=== PATIENT | female | born 1950 | race African-American/Black ===

== ENCOUNTER 2017-04-03 19:38 | Emergency (ER) | payer MEDICARE, MEDICAID ==
[~2017-04-03] VITALS: Ht 170.2 cm; Wt 68.0 kg
--- NOTE | 2017-04-03 19:40 | NUR ---
BIBRA FROM HOME DT RUQ ABDOMINAL PAIN X 2 DAYS, ACHING. PT IS AAO4. APPEARS IN NO APPARENT DISTRESS. VSS
[2017-04-03] MEDS ORDERED: FAMOTIDINE/PF INJ 20 MG/2 ML VIAL IV ONE ×2 (20:30→20:41)
[2017-04-03] MEDS ORDERED: ONDANSETRON HCL/PF 4 MG/2 ML VIAL IVP ONE (20:30)
[2017-04-03] MEDS ORDERED: IV NS 0.9% 1,000 ML BAG IV ONE (20:30)
[2017-04-03] MEDS ORDERED: MORPHINE SULFATE INJ 2 MG/ML DISP.SYRIN IV ONE (20:30)
[2017-04-03] MEDS ORDERED: ONDANSETRON HCL/PF 4 MG/2 ML VIAL ONE (20:41)
[2017-04-03] MEDS ORDERED: MORPHINE SULFATE INJ 4 MG/ML DISP.SYRIN ONE (20:41)
[2017-04-03 20:48] LABS: BASOPHILS # (AUTO) 0.1 /CMM (0.0-0.2); BASOPHILS % (AUTO) 0.7 % (0.0-2.0); EOSINOPHILS # (AUTO) 0.2 /CMM (0.0-0.7); EOSINOPHILS % (AUTO) 2.3 % (0.0-6.0); HEMATOCRIT 38 % (33-45); HEMOGLOBIN 12.6 g/dL (11.5-14.8); LYMPHOCYTES # (AUTO) 1.8 /CMM (0.8-4.8); LYMPHOCYTES % (AUTO) 20.5 % (20.0-44.0); MEAN CORPUSCULAR HEMOGLOBIN 30 PG (26.0-33.0); MEAN CORPUSCULAR HGB CONC 33 g/dl (31.0-36.0); MEAN CORPUSCULAR VOLUME 92 fL (82-100); MONOCYTES # (AUTO) 0.4 /CMM (0.1-1.30); MONOCYTES % (AUTO) 4.1 % (2.0-12.0); NEUTROPHILS # (AUTO) 6.2 /CMM (1.8-8.9); NEUTROPHILS % (AUTO) 72.4 % (43.0-81.0); PLATELET COUNT (AUTO) 267 /CMM (150-450); RDW COEFFICIENT OF VARIATION 15.1 (11.5-15.0); RED BLOOD CELL COUNT(AUTO) 4.13 MIL/uL (4.0-5.2); WHITE BLOOD COUNT (AUTO) 8.7 K/uL (4.3-11.0)
[2017-04-03 21:06] LABS: TROPONIN I < 0.017 ng/mL (0.00-0.056)
--- NOTE | 2017-04-03 21:08 | NUR ---
PATIENT WAS TAKEN TO CT
--- NOTE | 2017-04-03 21:09 | NUR ---
URINE SAMPLE SENT TO LAB
[2017-04-03 21:12] LABS: APPEARANCE,URINE Clear (CLEAR); BILIRUBIN,URINE Negative (NEGATIVE); BLOOD, URINE Trace-intact Ery/uL (NEGATIVE); COLOR,URINE Yellow (YELLOW); KETONES,URINE Negative (NEGATIVE); LEUKOCYTE ESTERASE ,URINE Negative (NEGATIVE); NITRITE, URINE Negative (NEGATIVE); PH,URINE 6.5 (5.0-8.0); PROTEIN,URINE Negative (NEGATIVE); UGLUCOSE Negative (NEGATIVE); UROBILINOGEN,URINE 0.2 EU/dL (0.2)
[2017-04-03 21:15] LABS: CALCIUM, SERUM 8.8 mg/dL (8.5-10.1); CARBON DIOXIDE 25 mmol/L (21-32); CHLORIDE 104 mmol/L (98-107); CREATININE 0.9 mg/dL (0.6-1.3); GLUCOSE 132 mg/dL (74-106); POTASSIUM 3.7 mmol/L (3.5-5.1); SODIUM SERUM 138 mmol/L (136-145); UREA NITROGEN, BLOOD 19 mg/dL (7-18)
[2017-04-03 21:24] LABS: BACTERIA,URINE Few /HPF (None Seen); MUCUS,URINE Few /LPF (None Seen); RBC,URINE 2-4/HPF /HPF (0-2); SQUAMOUS EPITHELIAL CELL,UR Rare /HPF (None Seen); WBC,URINE 0-2 /HPF (0-3)
[2017-04-03 21:27] LABS: ALBUMIN 3.6 g/dL (3.4-5.0); ASPARTATE AMINOTRANSFERASE 16 U/L (15-37); BILIRUBIN,DIRECT 0.1 mg/dL (0.0-0.2); LIPASE 181 U/L (73-393)
[2017-04-03 21:42] LABS: ALANINE AMINOTRANSFERASE 17 U/L (12-78); ALKALINE PHOSPHATASE 76 U/L (46-116); BILIRUBIN,TOTAL 0.2 mg/dL (0.2-1.0); TOTAL PROTEIN, SERUM 6.9 g/dL (6.4-8.2)
[2017-04-03 23:01] VITALS: BP 130/80
--- NOTE | 2017-04-03 23:02 | NUR ---
Patient discharged to home in stable condition. Written and verbal after care instructions given. Patient verbalizes understanding of instruction.
== END 2017-04-03 23:04 | disposition home or self-care (01) ==
LOC: ER 19:39
DX: K59.00 Constipation, unspecified (principal); R11.2 Nausea with vomiting, unspecified; Z90.89 Acquired absence of other organs
CPT/HCPCS: 36415; 71010; 71250; 74176; 80048; 80076; 81001; 83690; 84484; 85025; 93005; 96361; 96374; 96375; 99285; A4606; J2270; J2405; J3490; 81000-TC; Z7610

== ENCOUNTER 2017-12-25 22:18 | Inpatient (IN) | payer MEDICARE, MEDICAID ==
[~2017-12-25] VITALS: Ht 160 cm; Wt 63.5 kg
--- NOTE | 2017-12-25 00:05 | NUR ---
GPS RN NOTE: PATIENT ASLEEP, ARAUSABLE TO VERBAL STIMULI, NO SOB, NO ACUTE DISTRESS NOTED, BREATHING EVEN AND UNLABORED, NO S/S OF PAIN AND DISCOMFORT, KEPT CLEAN, DRY AND COMFORTABLE, WILL CONTINUE TO MONITOR [id number] FOR SAFETY Addendum: 12/26/17 at 0619 by CARMELA GONZALEZ II, RN 12/26/17 0005: TIME DOCUMENTED
--- NOTE | 2017-12-25 22:35 | NUR ---
ADMITTED A 67 Y/O FEMALE FROM [facility], ON 5150 HOLD DTS, PER HOLD, PATIENT WALKED INTO THE ER COMPLAINING OF SUICIDAL THOUGHTS, PATIENT FEELING INCREASINGLY DEPRESSED FOR THE PAST 2 WEEKS AND HAVING ONGOING SUICIDAL THOUGHTS. CLIENT SAID "I KEPT TRYING TO FIGHT IT, BUT I COULDN'T ANYMORE. PATIENT REPORTS HAVING A PLAN TO OD ON PILLS. PATIENT HAS A HISTORY OF SUICIDE ATTEMPTS BY OVERDOSE. PATIENT TRANSFERRED VIA [facility]ANZ WITH 2 EMT ASSIST. PATIENT ADMITTING DIAGNOSIS IS PSYCHOSIS AND MEDICAL DX. OF DM, HTN. UPON FACE TO FACE EVALUATION, PATIENT APPEARED ALERT AND ORIENTED X 3-4, DISORGANIZED, NEEDY, DEMANDING, HYPERVERBAL, ARGUMENTATIVE, COMBATIVE, GUARDED, PARANOID, REDIRECTABLE. PATIENT HAS NO SOB, NO ACUTE DISTRESS, BREATHING EVEN AND UNLABORED, C/O LOWER BACK PAIN, STOMACH PAIN AND INABILITY TO SLEEP. PATIENT WANTS A STRONG PAIN MEDICATION, MEDICATION FOR INDIGESTION AND SLEEPING PILLS. PATIENT AGREED TO TAKE A TYLENOL 650MG ORDERED FOR NOW AND STRONGER PAIN MEDICATION AFTER MEDS BEING RECONCILED BY THE MD. SLEEPING PILLS AND MEDS FOR INDIGESTION GIVEN ORDERED. HEAD TO TOE ASSESSMENT DONE, PICTURE DONE, CONSENT SIGNED, BELONGINGS INSPECTED FOR CONTRABAND CHECKING AND PLACED TO SAFE. PATIENT IS UNDER THE CARE OF DR. RICHARDSON. NOTIFIED PAYROLL AND BENEFITS ANALYST JIMMY TO RECONCILE THE MEDICATION. KEPT CLEAN, DRY AND COMFORTABLE, WILL CONTINUE TO MONITOR [id number] FOR SAFETY.
[2017-12-25] MEDS ORDERED: MAG HYDROX/AL HYDROX/SIMETH 30 ML UDC PO PRN (23:00)
[2017-12-25] MEDS ORDERED: ACETAMINOPHEN 325 MG TABLET PO PRN (23:00)
[2017-12-25] MEDS ORDERED: ZOLPIDEM TARTRATE 5 MG TABLET PO PRN (23:00)
[2017-12-25] MEDS ORDERED: LORAZEPAM 0.5 MG TABLET PO PRN (23:00)
[2017-12-25] MEDS ORDERED: MAGNESIUM HYDROXIDE 30 ML UDC PO PRN (23:00)
--- NOTE | 2017-12-26 00:05 | NUR ---
GPS RN NOTE: PATIENT ASLEEP, ARAUSABLE TO VERBAL STIMULI, NO SOB, NO ACUTE DISTRESS NOTED, BREATHING EVEN AND UNLABORED, NO S/S OF PAIN AND DISCOMFORT, KEPT CLEAN, DRY AND COMFORTABLE, WILL CONTINUE TO MONITOR [id number] FOR SAFETY
[2017-12-26] MEDS ORDERED: HYDR-3980 PO (00:08)
[2017-12-26] MEDS ORDERED: NAPR-1009 PO (00:08)
[2017-12-26] MEDS ORDERED: ONDA4TAB10 PO (00:08)
[2017-12-26] MEDS ORDERED: QUET300T2 PO (00:08)
[2017-12-26] MEDS ORDERED: LOSA25TA13 PO (00:08)
[2017-12-26] MEDS ORDERED: METF-440 PO (00:08)
[2017-12-26] MEDS ORDERED: SERT100T12 PO (00:08)
[2017-12-26] MEDS ORDERED: OMEP40CA37 PO (00:08)
[2017-12-26] MEDS ORDERED: MULT1TAB73 PO (00:10)
[2017-12-26] MEDS ORDERED: METH500T PO (00:10)
[2017-12-26] MEDS ORDERED: NAPROXEN 500 MG TABLET PO SCH (01:00)
[2017-12-26 01:04] VITALS: BP 144/82
[2017-12-26] MEDS: HYDROCODONE/APAP 10/325MG 1 EA TABLET PO PRN ×2 (05:36→19:35)
--- NOTE | 2017-12-26 06:38 | NUR ---
GPS RN NOTE: PATIENT SPOKE TO HER SISTER GINO MAGALLON TO NOTIFY HER OF THE ADMISSION. WILL CONTINUE TO MONITOR [id number] FOR SAFETY
[2017-12-26 07:29] LABS: ALBUMIN 3.3 g/dL (3.4-5.0); BILIRUBIN,TOTAL 0.2 mg/dL (0.2-1.0); CALCIUM, SERUM 9.6 mg/dL (8.5-10.1); CREATININE 0.7 mg/dL (0.6-1.3); POTASSIUM 4.1 mmol/L (3.5-5.1); TOTAL PROTEIN, SERUM 7.2 g/dL (6.4-8.2)
[2017-12-26 07:34] LABS: CHOLESTEROL 193 mg/dL (<200); HDL CHOLESTEROL 78 mg/dL (40-60); LDL 102 mg/dL (0-99); TRIGLYCERIDES 68 mg/dL (30-150)
[2017-12-26 08:00] VITALS: BP 136/77
[2017-12-26] MEDS ORDERED: METHOCARBAMOL (500MG) 500 MG TABLET PO SCH (09:00)
[2017-12-26] MEDS: PANTOPRAZOLE 40 MG TABLET.DR PO SCH (09:04)
[2017-12-26] MEDS: METFORMIN 500 MG TABLET PO SCH ×2 (09:05→17:09)
[2017-12-26] MEDS: LOSARTAN POTASSIUM 25 MG TABLET PO SCH (09:05)
[2017-12-26] MEDS: MULTIVITAMINS,THERAGRAN 1 UDTAB TABLET PO SCH (09:05)
[2017-12-26] MEDS: METHOCARBAMOL (750MG) 750 MG TABLET PO SCH ×3 (09:05→17:09)
[2017-12-26] MEDS: SERTRALINE HCL 50 MG TABLET PO SCH ×2 (12:21→13:38)
--- NOTE | 2017-12-26 15:43 | NUR ---
INITIAL DISCHARGE PLAN: Pt will return home to [address] [place] [phone] . SW will help form a safe and proper discharge home in collaboration with .
[2017-12-26 16:00] VITALS: BP 148/92
--- NOTE | 2017-12-26 19:23 | NUR ---
GPS/RN OPENING NOTES PATIENT OBSERVE ABLE TO AMBULATE TO THE BATHROOM, CALM AND COOPERATIVE, ACKNOWLEDGES PRESCENCE.WILL CONTINUE MONITORING FOR ANY CHANGES AND PROVIDE NEEDS. REPORT RECEIVED BY KATIANA Mosher FOR KRISTI.
--- NOTE | 2017-12-26 19:32 | NUR ---
EXTREME PAIN REPORTED AND OBSERVED REPORTED ON LEFT LOWER BREAST. B/P CHECK AND ELEVATED WILL PROVIDE MEDICATION PO NORCO 10-325 MG PO
[2017-12-26 20:00] VITALS: BP 162/88
[2017-12-26] MEDS: QUETIAPINE FUMARATE 100 MG TABLET PO SCH (21:08)
[2017-12-26] MEDS: ATORVASTATIN 10 MG TABLET PO SCH (21:08)
[2017-12-27 08:00] VITALS: BP 106/59
[2017-12-27] MEDS: METHOCARBAMOL (750MG) 750 MG TABLET PO SCH ×3 (09:06→17:06)
[2017-12-27] MEDS: PANTOPRAZOLE 40 MG TABLET.DR PO SCH (09:06)
[2017-12-27] MEDS: MULTIVITAMINS,THERAGRAN 1 UDTAB TABLET PO SCH (09:06)
[2017-12-27] MEDS: SERTRALINE HCL 50 MG TABLET PO SCH (09:06)
[2017-12-27] MEDS: METFORMIN 500 MG TABLET PO SCH ×2 (09:06→17:06)
[2017-12-27] MEDS: LOSARTAN POTASSIUM 25 MG TABLET PO SCH (09:07)
[2017-12-27] MEDS: HYDROCODONE/APAP 10/325MG 1 EA TABLET PO PRN ×2 (11:29→20:59)
[2017-12-27 16:00] VITALS: BP 107/55
--- NOTE | 2017-12-27 19:30 | NUR ---
GPS RN NOTE, RECEIVED PATIENT AWAKE AND IN BED, NO S/S OR COMPLAINTS OF PAIN AT THIS TIME. PATIENT DISPLAYING NO S/S OF APPARENT DISTRESS AT THIS TIME. PATIENT BREATHING IS UNLABORED WITH EQUAL RISE AND FALL OF THE CHEST. PATIENT ALERT AND ORIENTED X 3 WITH A SPO2 93%. PATIENT IS MED COMPLIANT, DISORGANIZED, NEEDY, HYPERVERBAL, COOPERATIVE, GUARDED, NEEDS REORIENTATION. PATIENT DENIES SUICIDE IDEATIONS AND HOMICIDAL IDEATIONS AT THIS TIME. PATIENT ASSISTED WITH TURNING AND REPOSITIONING Q2HR AND PRN FOR COMFORT AND CIRCULATION. PATIENT HAS NO NEEDS AT THIS TIME. PATIENT EDUCATED ON THE USE OF THE CALL COLE. PATIENT BED SIDE RAILS UP X2 FOR SAFETY, BED IS LOCKED AND LOW WILL CONTINUE TO MONITOR AND MAINTAIN AND MAINTAIN SAFETY.
--- NOTE | 2017-12-27 20:59 | NUR ---
GPS RN NOTE, PATIENT HAS A COMPLAINT OF LOWER BACK AT 7 OUT 10 ON THE PAIN SCALE AND IS REQUESTING NORCO AT THIS TIME. PATIENT VITAL SIGNS ARE STABLE. GAVE NORCO 10-325 1 TAB PO Q6HR PRN. WILL CONTINUE TO MONITOR THIS PATIENT.
[2017-12-27 21:26] VITALS: BP 117/61
[2017-12-27] MEDS: ATORVASTATIN 10 MG TABLET PO SCH (21:26)
[2017-12-27] MEDS: QUETIAPINE FUMARATE 100 MG TABLET PO SCH (21:26)
[2017-12-27] MEDS ORDERED: DEXTROSE 50%-WATER 50 ML DISP.SYRIN IV PRN (23:00)
[2017-12-28] MEDS: BLOOD SUGAR DIAGNOSTIC 1 EACH STRIP IN SCH ×4 (07:49→21:21)
[2017-12-28 08:00] VITALS: BP 110/67
[2017-12-28] MEDS: METFORMIN 500 MG TABLET PO SCH ×2 (08:29→16:18)
[2017-12-28] MEDS: SERTRALINE HCL 50 MG TABLET PO SCH (08:29)
[2017-12-28] MEDS: PANTOPRAZOLE 40 MG TABLET.DR PO SCH (08:29)
[2017-12-28] MEDS: METHOCARBAMOL (750MG) 750 MG TABLET PO SCH ×3 (08:29→16:17)
[2017-12-28] MEDS: MULTIVITAMINS,THERAGRAN 1 UDTAB TABLET PO SCH (08:29)
[2017-12-28] MEDS: LOSARTAN POTASSIUM 25 MG TABLET PO SCH (08:30)
--- NOTE | 2017-12-28 12:10 | NUR ---
GPS/RN-NOTES PATIENT BLOOD SUGAR WAS 160MG/DL, REFUSED 2 UNITS OF R INSULIN. STATED "I JUST HAVE MY LUNCH". EXPLAINED RISK AND BENEFITS BUT STILL REFUSED.OFFERED X3.
[2017-12-28 15:59] VITALS: BP 124/67
--- NOTE | 2017-12-28 19:30 | NUR ---
GPS RN NOTE, RECEIVED PATIENT AWAKE AND IN BED, COMPLAINT OF PAIN 8 OUT 10 IN UPPER ABDOMINAL AT THIS TIME. PATIENT IS ON ORAL PAIN MEDICATION FOR THIS PAIN. PATIENT DISPLAYING NO S/S OF APPARENT DISTRESS AT THIS TIME. PATIENT BREATHING IS UNLABORED WITH EQUAL RISE AND FALL OF THE CHEST. PATIENT ALERT AND ORIENTED X 3 WITH A SPO2 95%. PATIENT IS MED COMPLIANT, DISORGANIZED, NEEDY, HYPERVERBAL, COOPERATIVE, GUARDED, NEEDS REORIENTATION. PATIENT DENIES SUICIDE IDEATIONS AND HOMICIDAL IDEATIONS AT THIS TIME. PATIENT ASSISTED WITH TURNING AND REPOSITIONING Q2HR AND PRN FOR COMFORT AND CIRCULATION. PATIENT HAS NO NEEDS AT THIS TIME. PATIENT EDUCATED ON THE USE OF THE CALL COLE. PATIENT BED SIDE RAILS UP X2 FOR SAFETY, BED IS LOCKED AND LOW WILL CONTINUE TO MONITOR AND MAINTAIN AND MAINTAIN SAFETY.
[2017-12-28 20:00] VITALS: BP 118/53
[2017-12-28] MEDS: HYDROCODONE/APAP 10/325MG 1 EA TABLET PO PRN (20:15)
[2017-12-28] MEDS: ATORVASTATIN 10 MG TABLET PO SCH (21:20)
[2017-12-28] MEDS: QUETIAPINE FUMARATE 100 MG TABLET PO SCH (21:20)
--- NOTE | 2017-12-28 21:21 | NUR ---
GPS RN NOTE, PERFORMED ACCU CHECK ON PATIENT WITH A BLOOD SUGAR RESULT OF 133. GAVE 2 UNITS OF REGULAR INSULIN PER SLIDING SCALE. WILL CONTINUE TO MONITOR THIS PATIENT.
[2017-12-28] MEDS: INSULIN REGULAR, HUMAN 100 UNIT/ML 3 ML VIAL SQ PRN (21:27)
[2017-12-29] MEDS: BLOOD SUGAR DIAGNOSTIC 1 EACH STRIP IN SCH ×4 (07:51→22:21)
[2017-12-29 08:00] VITALS: BP 107/61
[2017-12-29] MEDS: MULTIVITAMINS,THERAGRAN 1 UDTAB TABLET PO SCH (08:21)
[2017-12-29] MEDS: SERTRALINE HCL 50 MG TABLET PO SCH (08:21)
[2017-12-29] MEDS: METHOCARBAMOL (750MG) 750 MG TABLET PO SCH ×3 (08:21→16:29)
[2017-12-29] MEDS: METFORMIN 500 MG TABLET PO SCH ×2 (08:21→16:29)
[2017-12-29] MEDS: PANTOPRAZOLE 40 MG TABLET.DR PO SCH (08:22)
[2017-12-29] MEDS: HYDROCODONE/APAP 10/325MG 1 EA TABLET PO PRN ×2 (08:24→22:06)
[2017-12-29] MEDS: LOSARTAN POTASSIUM 25 MG TABLET PO SCH (08:26)
--- NOTE | 2017-12-29 08:27 | NUR ---
Pt. is complaining of chest pain, Dr. Lopez in the unit and ordered stat EKG. Addendum: 12/29/17 at 0910 by ERNIE MORROW RN NOT FOR THIS PT.
[2017-12-29] MEDS: NITROFURANTOIN/NITROFURAN MAC 100 MG CAPSULE PO SCH ×2 (12:04→21:17)
[2017-12-29] MEDS: INSULIN REGULAR, HUMAN 100 UNIT/ML 3 ML VIAL SQ PRN (12:07)
[2017-12-29 16:00] VITALS: BP 123/65
[2017-12-29] MEDS: QUETIAPINE FUMARATE 100 MG TABLET PO SCH (21:17)
[2017-12-29] MEDS: ATORVASTATIN 10 MG TABLET PO SCH (21:17)
--- NOTE | 2017-12-29 22:30 | NUR ---
PT EATING JELLO AND SANDWICH AT THIS TIME. NO DISTRESS, NO SOB NOTED. NO C/O PAIN OR DISCOMFORT . WILL CONT TO MONITOR.
[2017-12-30] MEDS: BLOOD SUGAR DIAGNOSTIC 1 EACH STRIP IN SCH ×4 (07:56→21:42)
[2017-12-30] MEDS: METFORMIN 500 MG TABLET PO SCH ×2 (08:11→17:01)
[2017-12-30] MEDS: METHOCARBAMOL (750MG) 750 MG TABLET PO SCH ×3 (08:12→17:01)
[2017-12-30] MEDS: NITROFURANTOIN/NITROFURAN MAC 100 MG CAPSULE PO SCH ×2 (08:12→21:41)
[2017-12-30] MEDS: MULTIVITAMINS,THERAGRAN 1 UDTAB TABLET PO SCH (08:12)
[2017-12-30] MEDS: HYDROCODONE/APAP 10/325MG 1 EA TABLET PO PRN ×2 (08:12→15:19)
[2017-12-30] MEDS: PANTOPRAZOLE 40 MG TABLET.DR PO SCH (08:12)
[2017-12-30] MEDS: LOSARTAN POTASSIUM 25 MG TABLET PO SCH (08:12)
[2017-12-30] MEDS: SERTRALINE HCL 50 MG TABLET PO SCH (08:12)
[2017-12-30 08:26] VITALS: BP 119/65
[2017-12-30] MEDS: INSULIN REGULAR, HUMAN 100 UNIT/ML 3 ML VIAL SQ PRN ×2 (09:20→12:14)
[2017-12-30 15:50] VITALS: BP 109/69
[2017-12-30 20:00] VITALS: BP 120/61
[2017-12-30] MEDS: ATORVASTATIN 10 MG TABLET PO SCH (21:41)
[2017-12-30] MEDS: QUETIAPINE FUMARATE 100 MG TABLET PO SCH (21:41)
--- NOTE | 2017-12-31 00:17 | NUR ---
Pt has been with blunted affect & guarded but compliant with care w/o any promptings.
[2017-12-31 08:00] VITALS: BP 125/73
[2017-12-31] MEDS: BLOOD SUGAR DIAGNOSTIC 1 EACH STRIP IN SCH ×4 (08:19→22:07)
[2017-12-31] MEDS: METFORMIN 500 MG TABLET PO SCH ×2 (08:20→16:15)
[2017-12-31] MEDS: METHOCARBAMOL (750MG) 750 MG TABLET PO SCH ×3 (08:20→16:16)
[2017-12-31] MEDS: MULTIVITAMINS,THERAGRAN 1 UDTAB TABLET PO SCH (08:20)
[2017-12-31] MEDS: SERTRALINE HCL 50 MG TABLET PO SCH (08:20)
[2017-12-31] MEDS: PANTOPRAZOLE 40 MG TABLET.DR PO SCH (08:21)
[2017-12-31] MEDS: NITROFURANTOIN/NITROFURAN MAC 100 MG CAPSULE PO SCH ×2 (08:21→21:11)
[2017-12-31] MEDS: LOSARTAN POTASSIUM 25 MG TABLET PO SCH (08:21)
[2017-12-31] MEDS: HYDROCODONE/APAP 10/325MG 1 EA TABLET PO PRN (08:23)
[2017-12-31 16:00] VITALS: BP 109/60
[2017-12-31] MEDS: INSULIN REGULAR, HUMAN 100 UNIT/ML 3 ML VIAL SQ PRN ×2 (17:42→22:06)
[2017-12-31] MEDS: ATORVASTATIN 10 MG TABLET PO SCH (21:11)
[2017-12-31] MEDS: QUETIAPINE FUMARATE 100 MG TABLET PO SCH (21:11)
[2017-12-31 21:55] VITALS: BP 108/69
[2018-01-01] MEDS: SERTRALINE HCL 50 MG TABLET PO SCH (08:16)
[2018-01-01] MEDS: BLOOD SUGAR DIAGNOSTIC 1 EACH STRIP IN SCH ×2 (08:16→12:00)
[2018-01-01] MEDS: PANTOPRAZOLE 40 MG TABLET.DR PO SCH (08:16)
[2018-01-01] MEDS: MULTIVITAMINS,THERAGRAN 1 UDTAB TABLET PO SCH (08:16)
[2018-01-01] MEDS: METFORMIN 500 MG TABLET PO SCH ×2 (08:19→16:26)
[2018-01-01] MEDS: METHOCARBAMOL (750MG) 750 MG TABLET PO SCH ×3 (08:19→16:18)
[2018-01-01] MEDS: LOSARTAN POTASSIUM 25 MG TABLET PO SCH (08:20)
[2018-01-01] MEDS: NITROFURANTOIN/NITROFURAN MAC 100 MG CAPSULE PO SCH ×2 (08:21→21:11)
[2018-01-01] MEDS: NICOTINE PATCH (14MG) 14 MG PATCH.TD24 TD SCH (08:25)
[2018-01-01 08:26] VITALS: BP 114/68
--- NOTE | 2018-01-01 15:29 | NUR ---
GPS RN NOTE: IN T.O. ORDER DNP ROMANA DC ACCU CHECK, ORDER PLACED AND CARED OUT WILL CONTINUE MONITORING.
[2018-01-01 16:00] VITALS: BP 124/62
[2018-01-01 19:13] LABS: APPEARANCE,URINE SL CLOUDY (CLEAR); BILIRUBIN,URINE NEGATIVE (NEGATIVE); BLOOD, URINE NEGATIVE Ery/uL (NEGATIVE); COLOR,URINE YELLOW (YELLOW); KETONES,URINE NEGATIVE (NEGATIVE); LEUKOCYTE ESTERASE ,URINE 1+ (NEGATIVE); NITRITE, URINE NEGATIVE (NEGATIVE); PROTEIN,URINE NEGATIVE (NEGATIVE); UGLUCOSE NEGATIVE (NEGATIVE); UROBILINOGEN,URINE 0.2 EU/dL (0.2)
[2018-01-01 19:26] LABS: BACTERIA,URINE Rare /HPF (None Seen); CALCIUM OXALATE CRYSTALS,UR Few /HPF (None Seen); RBC,URINE 0-2 /HPF (0-2); SQUAMOUS EPITHELIAL CELL,UR Few /HPF (None Seen)
[2018-01-01 20:12] VITALS: BP 132/63
[2018-01-01] MEDS: ATORVASTATIN 10 MG TABLET PO SCH (21:11)
[2018-01-01] MEDS: QUETIAPINE FUMARATE 100 MG TABLET PO SCH (21:11)
[2018-01-01] MEDS: HYDROCODONE/APAP 10/325MG 1 EA TABLET PO PRN (21:19)
[2018-01-02 06:48] LABS: BASOPHILS % (AUTO) 0.8 % (0.0-2.0); EOSINOPHILS % (AUTO) 3.6 % (0.0-6.0); HEMATOCRIT 34 % (33-45); HEMOGLOBIN 11.7 g/dL (11.5-14.8); LYMPHOCYTES # (AUTO) 1.6 /CMM (0.8-4.8); LYMPHOCYTES % (AUTO) 28.2 % (20.0-44.0); MEAN CORPUSCULAR HGB CONC 35 g/dl (31.0-36.0); MEAN CORPUSCULAR VOLUME 89 fL (82-100); MONOCYTES # (AUTO) 0.7 /CMM (0.1-1.30); MONOCYTES % (AUTO) 12.1 % (2.0-12.0); NEUTROPHILS # (AUTO) 3.1 /CMM (1.8-8.9); NEUTROPHILS % (AUTO) 55.3 % (43.0-81.0); PLATELET COUNT (AUTO) 224 /CMM (150-450); RDW COEFFICIENT OF VARIATION 15.6 (11.5-15.0); RED BLOOD CELL COUNT(AUTO) 3.78 MIL/uL (4.0-5.2); WHITE BLOOD COUNT (AUTO) 5.7 K/uL (4.3-11.0)
[2018-01-02 07:06] LABS: CALCIUM, SERUM 9.2 mg/dL (8.5-10.1); CREATININE 0.7 mg/dL (0.6-1.3); POTASSIUM 4.3 mmol/L (3.5-5.1)
[2018-01-02 08:00] VITALS: BP 100/59
[2018-01-02] MEDS: NITROFURANTOIN/NITROFURAN MAC 100 MG CAPSULE PO SCH (08:25)
[2018-01-02] MEDS: METFORMIN 500 MG TABLET PO SCH (08:25)
[2018-01-02 08:26] VITALS: BP 100/59
[2018-01-02] MEDS: LOSARTAN POTASSIUM 25 MG TABLET PO SCH (08:26)
[2018-01-02] MEDS: MULTIVITAMINS,THERAGRAN 1 UDTAB TABLET PO SCH (08:26)
[2018-01-02] MEDS: METHOCARBAMOL (750MG) 750 MG TABLET PO SCH ×2 (08:26→12:11)
[2018-01-02] MEDS: NICOTINE PATCH (14MG) 14 MG PATCH.TD24 TD SCH (08:26)
[2018-01-02] MEDS: PANTOPRAZOLE 40 MG TABLET.DR PO SCH (08:28)
[2018-01-02] MEDS: SERTRALINE HCL 50 MG TABLET PO SCH (08:33)
--- NOTE | 2018-01-02 11:32 | NUR ---
DISCHARGE NOTE: Pt is discharging home to [address] [facility] [facility] at 3:00pm via public transportation (4 bus tokens). Pts Sister Elena [phone] was notified and agreed with discharge plan. Pt was calm and cooperative and agreed with discharge plan. Pt denied suicidal/homicidal ideations and denied visual/auditory hallucinations. Pt has a history of substance abuse and was provided with a referral to [facility] and will report to the [facility] Address: [facility] [place] [address] to attend an outpatient group on Wednesday January 03, 2018 at 9:00am. Additional resources included [facility] [address] [place] [address] and [facility] [address] [place] [address] . Pt has a scheduled appointment with Olericulturist: Dr. Lamb [address] [place] [phone] on 01/23/18 at 12:00pm and a follow up scheduled appointment with Psychiatrist: Jose Juan BERMUDEZ-Dept of Mental [facility] [place] Espinoza[address] [phone] on 01/12/18 at 9:00am. The multidisciplinary exitcare form was done, printed, signed, and given to the patient.
--- NOTE | 2018-01-02 12:02 | NUR ---
HOME HEALTH: LETICIA faxed home health referral to [facility] [phone].
--- NOTE | 2018-01-02 15:15 | NUR ---
[id number]: PT IS 67 YEARS OLD DISCHARGE TO HOME TO [address] [place] [address]. [id number] [facility]. IN STABLE CONDITION. COMPLIANT WITH MEDICATIONS, COOPERATIVE WITH TREATMENT PLANS. PT DENIES SI/HI AND INSTRUCTED TO GO TO THE CLOSEST ER IF DEVELOPING SI/HI. BEHAVIOR IMPROVED, PSYCHIATRIC TX PLANS MET, MEDICAL TX PLANS DEFERRED FOR CONTINUAL MONITORING. EDUCATED PT ABOUT AFTER CARE PLAN AND COPY PROVIDED. RETURNED PERSONAL BELONGINGS TO PT. MEDICATIONS WITH DR. OCASIO AND DR. RICHARDSON. PT SIGNED DISCHARGE PAPERWORK. SKIN IS CLEAR. PT LEFT VIA PUBLIC TRANSPORTATION.
--- NOTE | 2018-01-18 12:49 | NUR ---
15 DAY SUBSTANCE ABUSE FOLLOW-UP: unable to follow up due to contact number no longer valid.
== END 2018-01-02 15:15 | disposition home or self-care (01) | DRG 885 ==
LOC: GPS 22:18
PROVIDERS: ADMIT Psychiatry & Neurology Psychiatry; ATTEND Psychiatry & Neurology Psychiatry
DX: F25.1 Schizoaffective disorder, depressive type (principal); B95.2 Enterococcus as the cause of diseases classified elsewhere; E11.65 Type 2 diabetes mellitus with hyperglycemia; R45.851 Suicidal ideations; N39.0 Urinary tract infection, site not specified; I10 Essential (primary) hypertension; F14.10 Cocaine abuse, uncomplicated; F10.10 Alcohol abuse, uncomplicated; E78.5 Hyperlipidemia, unspecified; G89.29 Other chronic pain; Z72.0 Tobacco use; Z87.442 Personal history of urinary calculi; Z79.899 Other long term (current) drug therapy; Z81.8 Family history of other mental and behavioral disorders; K21.9 Gastro-esophageal reflux disease without esophagitis
CPT/HCPCS: 36415; 76770-TC; 80048-TC; 80053-TC; 80061-TC; 81000-TC; 82962-TC; 85025-TC; 87081-TC; 87086-TC; 87186-TC; J1815